=== PATIENT | male | born 1960 | race Caucasian/White ===

== ENCOUNTER 2021-07-07 14:08 | Outpatient (REF) | payer OTHER, SELFPAY ==
--- NOTE | ~2021-07-07 | CT_ITS ---
EXAMINATION: CT ABDOMEN AND PELVIS WITH CONTRAST CLINICAL INFORMATION: Generalized abdominal pain and nausea. COMPARISON: None TECHNIQUE: Multidetector volumetric images were obtained from the superior aspect of the liver through the pubic symphysis following administration 85 mL of Omnipaque 350 intravenous contrast. Sagittal and coronal reformatted images were obtained on the technologist's workstation. Oral contrast: Yes. This CT examination was performed using dose optimization techniques as appropriate, variously including the following: *Automated exposure control *Adjustment of mA and/or kV according to patient size (this includes techniques or standardized protocols for targeted exams where dose is matched to indication/reason for exam; i.e. extremities or head) *Use of iterative reconstruction technique DLP: 339 mGy-cm FINDINGS: LUNG BASES: The visualized lung bases are clear. There is a small left posterior diaphragmatic hernia containing fat. LIVER, GALLBLADDER, AND BILIARY TREE: The liver is normal in size, shape, and attenuation. No focal hepatic lesion or biliary ductal dilatation is present. The gallbladder is unremarkable with no evidence of radiopaque gallstones, gallbladder wall thickening, or obvious pericholecystic inflammatory changes. PANCREAS: Unremarkable. SPLEEN: Unremarkable. ADRENAL GLANDS: Unremarkable. KIDNEYS AND URETERS: There is a 5 mm low-attenuation lesion in the upper pole of the left kidney probably representing a cyst. The kidneys are otherwise unremarkable. No imaging followup is indicated. BLADDER: Unremarkable. GASTROINTESTINAL TRACT: There is question of mild wall thickening of the distal colon versus changes due to underdistention. The small and large bowel are otherwise unremarkable. The appendix is unremarkable. The stomach is unremarkable. ABDOMINAL WALL: No significant hernia is appreciated. LYMPH NODES: Normal. VASCULAR: Unremarkable. PELVIC VISCERA: The prostate gland is slightly enlarged measuring 4.5 x 5 cm in AP and transverse dimension. OSSEOUS STRUCTURES: There are degenerative changes of the spine and mild scoliosis. There are 2 small densities in the left hip joint questionable for intra-articular loose bodies or calcification of the ligamentum teres. CT/CT abdomen pelvis w con IMPRESSION: Question mild wall thickening of the distal colon/colitis versus changes due to underdistention. Small left renal cyst. Slightly enlarged prostate gland. Fleischner guidelines were followed.
[2021-07-07] MEDS: iohexoL 350 MG/ML 100 ML INFUS..BTL IV (15:02)
== END 2021-07-07 14:09 | disposition home or self-care (01) ==
LOC: HO.CT 14:08
PROVIDERS: PCP Internal Medicine; Visit Provider Physician Assistant
DX: R10.84 Generalized abdominal pain (principal); R11.0 Nausea
CPT/HCPCS: 74177; Q9967